=== PATIENT | male | born 1970 | race Caucasian/White ===

== ENCOUNTER → 2019-02-11 | Outpatient (CLI) | payer OTHER ==
--- NOTE | 2019-02-11 10:21 | XR ---
EXAMINATION TYPE: XR elbow complete LT DATE OF EXAM: 02/11/2019 CLINICAL HISTORY: Antecubital pain of the left elbow from pulling injury TECHNIQUE: Frontal, lateral and oblique images of the left elbow are obtained. COMPARISON: None FINDINGS: There is no acute fracture/dislocation evident in the left elbow. No abnormal fat pad sig ns are seen. Punctate coronoid osteophyte is noted. The overlying soft tissue appears unremarkable. IMPRESSION: There is no acute fracture or dislocation in the left elbow.
== END | disposition home or self-care (01) ==
LOC: RADXRMAIN 09:44
PROVIDERS: ATTEND Emergency Medicine
DX: S53.402A Unspecified sprain of left elbow, initial encounter (principal)

== ENCOUNTER → 2019-02-16 | Outpatient (CLI) | payer OTHER ==
--- NOTE | 2019-02-17 04:44 | MR ---
EXAMINATION TYPE: MR elbow LT wo con DATE OF EXAM: 02/16/2019 COMPARISON: Radiograph 02/11/2019 HISTORY: 48-year-old male with pain, Sprain of left elbow TECHNIQUE: Multiplanar, multisequence images of the left elbow were obtained without IV contrast. FINDINGS: There appears to be rupture of the distal biceps tendon with involvement of stump retracted by 1.5 cm , still well below the elbow joint line. Minimal wispy insertional fibers of the long head biceps ten don portion of the DBT are seen, refer to sagittal series 701 images 21 through 27. Associated hemorr filemon and edema. Mild heterogeneity of the common extensor tendon origin with a tiny 3 mm intrasubstance tear. The rad ial collateral ligament appears grossly intact. The ulnar collateral ligament is intact. The common flexor origin pronator mass shows a tiny 5 x 1 mm intrasubstance tear. Heterogeneity of the triceps insertion with small insertional intrasubstance tears. There is thickening of the overlying soft tissues with associated edema as well as foci susceptibilit y artifact, correlation can be made for gout or possible chronic hemorrhagic olecranon bursitis. Thickening of the ulnar nerve at the sulcus and there is at 25.8 sq mm. The brachial artery and vein and adjacent median nerve are satisfactory. No focal cartilage defect. No bone marrow edema or bone marrow placement. The remaining surrounding subcutaneous soft tissues are unremarkable. IMPRESSION: 1. Distal biceps tendon rupture with stump retracted minimally by 1.5 cm still well below the elbow j oint line. 2. Insertional triceps tendinosis with small intrasubstance tears. 3. Overlying gouty versus hemorrhagic olecranon bursitis suggested. Clinically correlate. There is on ly mild associated edema suggesting a more chronic process. 4. Mild common extensor and common flexor origin tendinosis with tiny intrasubstance tears. 5. Thickened ulnar nerve at the elbow. Correlate for any symptoms of ulnar neuropathy.
== END | disposition home or self-care (01) ==
LOC: RADMRIMAIN 13:04
PROVIDERS: ATTEND Emergency Medicine
DX: S46.212A Strain of muscle, fascia and tendon of other parts of biceps, left arm, initial encounter (principal); S46.312A Strain of muscle, fascia and tendon of triceps, left arm, initial encounter; M67.824 Other specified disorders of tendon, left elbow

== ENCOUNTER → 2020-03-11 | Outpatient (CLI) | payer BC ==
[2020-03-11 10:33] LABS: Basophils # (A) 0.1 k/uL (0-0.2); Basophils % (A) 1 %; Eosinophils # (A) 0.2 k/uL (0-0.7); Eosinophils % (A) 3 %; HGB 15.8 gm/dL (13.0-17.5); Lymphocytes # (A) 2.3 k/uL (1.0-4.8); Lymphocytes % (A) 37 %; MCH 30.6 pg (25.0-35.0); MCHC 32.3 g/dL (31.0-37.0); MCV 94.7 fL (80.0-100.0); Mean Platelet Volume 6.9; Monocytes # (A) 0.3 k/uL (0-1.0); Monocytes % (A) 6 %; Neutrophils # (A) 3.1 k/uL (1.3-7.7); Neutrophils % (A) 51 %; Platelet Count 318 k/uL (150-450); RBC 5.18 m/uL (4.30-5.90); RDW 11.9 % (11.5-15.5); WBC 6.1 k/uL (3.8-10.6)
[2020-03-11 11:44] LABS: Appearance,Urine Clear (Clear); Bilirubin,Urine Negative (Negative); Blood,Urine Negative (Negative); Color,Urine Yellow; Glucose,Urine (UA) Negative (Negative); Ketones,Urine Negative (Negative); Leukocyte Esterase,Urine Negative (Negative); Nitrite,Urine Negative (Negative); PH, Urine 5.5 (5.0-8.0); Protein,Urine Negative (Negative); Specific Gravity,Urine 1.015 (1.001-1.035); Urobilinogen,Urine <2.0 mg/dL (<2.0)
[2020-03-11 20:59] LABS: Hemoglobin A1C 5.2 % (4.0-6.0)
[2020-03-11 22:19] LABS: African American GFR (CKD) 115.8 (60.0-200.0); Anion Gap 10.2 mmol/L (4.00-12.00); BUN/Creat Ratio 12.22 Ratio (12.00-20.00); Calcium 9.6 mg/dL (8.7-10.3); Carbon Dioxide 22.8 mmol/L (21.6-31.8); Non-African American GFR(CKD) 99.9 (60.0-200.0); Potassium 4.3 mmol/L (3.5-5.5)
[2020-03-12 02:59] LABS: INR 0.95 (0.90-1.11); Partial Thromboplastin Time 25.8 sec (24.7-29.9); Prothrombin Time 10.2 sec (9.9-11.9)
== END | disposition home or self-care (01) ==
LOC: LABPAT 09:44
PROVIDERS: ATTEND Orthopaedic Surgery
DX: Z01.818 Encounter for other preprocedural examination (principal)
CPT/HCPCS: 36415; 80048; 81003; 83036; 85025; 85610; 85730; 86850; 86900; 86901; 87070; 87086